=== PATIENT | female | born 1965 | race Caucasian/White ===

== ENCOUNTER 2019-12-16 07:22 | Outpatient (CLI) | payer OTHER, SELFPAY ==
--- NOTE | ~2019-12-16 | DEXA_ITS ---
Bone Density Report Name: Soni Alarcon Age: 54 Sex: Female Ethnicity: White Date of : 1965 Indication: osteopenia; hysterectomy;postmenopausal Referring Provider: MAURICIO, NOHEMI Study: Bone densitometry was performed. Exam Date: December 16, 2019 Accession number: [id number] Bone Density: Region BMD T-score Z-score Classification AP Spine (L1-L4) 0.863 -1.7 -0.7 Osteopenia Femoral Neck (Left) 0.809 -0.4 0.6 Normal Total Hip (Left) 0.959 0.1 0.8 Normal Total Hip Bilateral Avg 0.978 0.3 1.0 Normal Femoral Neck (Right) 0.829 -0.2 0.8 Normal Total Hip (Right) 0.996 0.4 1.1 Normal World Health Organization criteria for BMD impression classify patients as: Normal (T-score at or above -1.0), Osteopenia (T-score between -1.0 and -2.5), or Osteoporosis (T-score at or below -2.5). 10-year Fracture Risk(1): Major Osteoporotic Fracture 4.4% Hip Fracture 0.1% Reported Risk Factors: [place] (), Neck BMD=0.809, BMI=20.7 (1) FRAX(R) Version 3.08. Fracture probability calculated for an untreated patient. Fracture probability may be lower if the patient has received treatment. Previous Exams: Region Exam Age BMD T-score BMD Change BMD Change Date g/cm2 vs Baseline vs Previous AP Spine(L1-L4) 12/16/2019 54 0.863 -1.7 -0.092(-9.7%)* -0.020(-2.2%) 11/17/2017 52 0.882 -1.5 -0.073(-7.6%)* -0.073(-7.6%)* 10/24/2014 49 0.955 -0.8 Total Hip(Left) 12/16/2019 54 0.959 0.1 -0.026(-2.6%) 0.017(1.8%) 11/17/2017 52 0.942 0.0 -0.043(-4.4%)* -0.043(-4.4%)* 10/24/2014 49 0.986 0.4 Total Hip(Right) 12/16/2019 54 0.996 0.4 0.007(0.7%) 0.015(1.5%) 11/17/2017 52 0.981 0.3 -0.008(-0.8%) -0.008(-0.8%) 10/24/2014 49 0.989 0.4 *Denotes significance at 95% confidence level, LSC for AP Spine = 0.022 g/cm2, LSC for Total Hip = 0.027 g/cm2 Clinical Information Provided by Patient: Has used the following medications: Vitamin D, Calcium Has the following medical conditions: Hysterectomy Patient maximum height was 61 Menopause Age: 46 Does not regularly consume dairy products Drinks caffeinated beverages Onset of menses at age 14 Number of children 2 Impression: The patient has low bone mass, based on the Total Spine T-score. The patient has an estimated ten-year risk of hip fracture of 0.1% and an estimated ten-year risk of major fracture of 4.4%, based on the WHO FRAX algorithm. No
--- NOTE | ~2019-12-16 | MM_ITS ---
EXAMINATION: MM screening [facility] BI w eliazar HISTORY: Screening mammogram TECHNIQUE: Craniocaudal and mediolateral oblique 3-D tomosynthesis images were obtained and synthetic 2-D images were generated. CAD analysis was submitted and interpreted. COMPARISON: 12/07/2018, 11/08, 11/06/2016 bilateral digital screening mammogram examinations BREAST PARENCHYMAL COMPOSITION: The breasts are heterogeneously dense, which may obscure small masses . FINDINGS: Numerous bilateral benign calcifications. There is no evidence of suspicious mass, calcific ation, or architectural distortion to suggest malignancy in either breast. There has been no suspicio us interval change. IMPRESSION: 1. No mammographic evidence of malignancy. 2. Recommend routine screening mammography in one year. BI-RADS Category 2: Benign finding(s). Reviewed, dictated and finalized at location A.
== END 2019-12-16 07:23 | disposition home or self-care (01) ==
LOC: ANHIMG 07:27
PROVIDERS: Visit Provider Nurse Practitioner
DX: Z12.31 Encounter for screening mammogram for malignant neoplasm of breast (principal); Z78.0 Asymptomatic menopausal state; M85.88 Other specified disorders of bone density and structure, other site
CPT/HCPCS: 77063; 77067; 77080

== ENCOUNTER 2020-12-18 17:19 | Outpatient (CLI) | payer OTHER, SELFPAY ==
--- NOTE | ~2020-12-18 | MM_ITS ---
EXAMINATION: MM screening [facility] BI w eliazar HISTORY: Screening TECHNIQUE: Craniocaudal and mediolateral oblique 3-D tomosynthesis images were obtained and synthetic 2-D images were generated. CAD analysis was submitted and interpreted. COMPARISON: Comparison to multiple prior studies sequentially, with oldest reviewed study dated 10/2014. BREAST PARENCHYMAL COMPOSITION: The breasts are heterogeneously dense, which may obscure small masses . FINDINGS: There are benign-appearing bilateral breast calcifications. There is no evidence of suspici ous mass, calcification, or architectural distortion to suggest malignancy in either breast. There delgado s been no suspicious interval change. IMPRESSION: 1. No mammographic evidence of malignancy. 2. Recommend routine screening mammography in one year. BI-RADS Category 2: Benign finding(s). Reviewed, dictated and finalized at location A.
== END 2020-12-18 17:20 | disposition home or self-care (01) ==
LOC: ANHIMG 17:22
PROVIDERS: Visit Provider Nurse Practitioner
DX: Z12.31 Encounter for screening mammogram for malignant neoplasm of breast (principal)
CPT/HCPCS: 77063; 77067

== ENCOUNTER 2022-01-15 14:49 | Outpatient (CLI) | payer OTHER, SELFPAY ==
--- NOTE | ~2022-01-15 | MM_ITS ---
EXAMINATION: MM screening [facility] BI w eliazar HISTORY: Screening mammogram TECHNIQUE: Craniocaudal and mediolateral oblique 3-D tomosynthesis images were obtained and synthetic 2-D images were generated. CAD analysis was submitted and interpreted. COMPARISON: 12/18/2020, 12/16/2019, 12/07/2018 bilateral screening mammogram examinations BREAST PARENCHYMAL COMPOSITION: The breasts are heterogeneously dense, which may obscure small masses . FINDINGS: There are multiple scattered bilateral benign calcifications. There is no evidence of suspi cious mass, calcification, or architectural distortion to suggest malignancy in either breast. There has been no suspicious interval change. IMPRESSION: 1. No mammographic evidence of malignancy. 2. Recommend routine screening mammography in one year. BI-RADS Category 2: Benign finding(s). Reviewed, dictated and finalized at location A.
== END 2022-01-15 14:50 | disposition home or self-care (01) ==
LOC: ANHIMG 14:52
PROVIDERS: Visit Provider Nurse Practitioner
DX: Z12.31 Encounter for screening mammogram for malignant neoplasm of breast (principal)
CPT/HCPCS: 77063; 77067

== ENCOUNTER 2022-04-30 14:52 | Outpatient (CLI) | payer OTHER, SELFPAY ==
--- NOTE | ~2022-04-30 | DEXA_ITS ---
Bone Density Report Name: LUANN BROWN Age: 57 Sex: Female Ethnicity: White Date of : 1965 Indication: osteopenia; hysterectomy; postmenopausal Referring Provider: MAURICIO, NOHEMI Study: Bone densitometry was performed. Exam Date: April 30, 2022 Accession number: [id number] Bone Density: Region BMD T-score Z-score Classification AP Spine(L1-L4) 0.955 -0.8 0.3 Normal Femoral Neck (Left) 0.833 -0.1 1.0 Normal Total Hip (Left) 0.974 0.3 1.0 Normal Femoral Neck (Right) 0.855 0.1 1.2 Normal Total Hip (Right) 1.012 0.6 1.3 Normal Total Hip Mean 0.993 0.5 1.2 Normal World Health Organization criteria for BMD impression classify patients as: Normal (T-score at or above -1.0), Osteopenia (T-score between -1.0 and -2.5), or Osteoporosis (T-score at or below -2.5). 10-year Fracture Risk: FRAX not reported because: All T-scores for Spine Total, Hip Total, Femoral Neck at or above -1.0 Previous Exams: Region Exam Age BMD T-score BMD Change BMD Change Date g/cm2 vs Baseline vs Previous AP Spine (L1-L4) 04/30/2022 57 0.955 -0.8 0.000 (0.0%) 0.092 (10.7%)* 12/16/2019 54 0.863 -1.7 -0.092 (-9.7%) -0.020 (-2.2%) 11/17/2017 52 0.882 -1.5 -0.073 (-7.6%) -0.073 (-7.6%) 10/24/2014 49 0.955 -0.8 Total Hip(Left) 04/30/2022 57 0.974 0.3 -0.011 (-1.2%) 0.015 (1.5%) 12/16/2019 54 0.959 0.1 -0.026 (-2.6%) 0.017 (1.8%) 11/17/2017 52 0.942 0.0 -0.043 (-4.4%) -0.043 (-4.4%) 10/24/2014 49 0.986 0.4 Total Hip(Right) 04/30/2022 57 1.012 0.6 0.023 (2.3%) 0.016 (1.6%) 12/16/2019 54 0.996 0.4 0.007 (0.7%) 0.015 (1.5%) 11/17/2017 52 0.981 0.3 -0.008 (-0.8%) -0.008 (-0.8%) 10/24/2014 49 0.989 0.4 *Denotes significance at 95% confidence level, LSC for AP Spine = 0.022 g/cm2, LSC for Total Hip = 0.027 g/cm2 Clinical Information Provided by Patient: Has used the following medications: Fosamax (i.e. alendronate), Vitamin D, Calcium Has the following medical conditions: Hysterectomy Patient maximum height was 61 Menopause Age: 46 Drinks caffeinated beverages Onset of menses at age 14 Number of children 2 Impression: The patient has normal bone mass. No significant bone loss was observed. Discussion: BONE DENSITY IS ABOVE THE MINIMUM DESIRABLE LEVEL AT ALL SKELETAL SITES TESTED. This patient?s bone mineral density is above the minimum de
== END 2022-04-30 14:53 | disposition home or self-care (01) ==
PROVIDERS: Visit Provider Nurse Practitioner
DX: Z78.0 Asymptomatic menopausal state (principal)
CPT/HCPCS: 77080

== ENCOUNTER 2023-04-15 07:53 | Outpatient (CLI) | payer OTHER, SELFPAY ==
--- NOTE | ~2023-04-15 | MM_ITS ---
EXAMINATION: MM screening [facility] BI w eliazar HISTORY: Screening mammogram TECHNIQUE: Craniocaudal and mediolateral oblique 3-D tomosynthesis images were obtained and synthetic 2-D images were generated. CAD analysis was submitted and interpreted. COMPARISON: 01/15/2022, 12/18/2020, 12/16/2019 bilateral screening mammogram examinations BREAST PARENCHYMAL COMPOSITION: The breasts are heterogeneously dense, which may obscure small masses . FINDINGS: Scattered bilateral benign-appearing microcalcifications are again noted. There is no evide nce of suspicious mass, calcification, or architectural distortion to suggest malignancy in either br east. There has been no suspicious interval change. IMPRESSION: 1. Benign findings. No mammographic evidence of malignancy. 2. Recommend routine screening mammography in one year. BI-RADS Category 2: Benign finding(s). Reviewed, dictated and finalized at location A.
== END 2023-04-15 07:54 | disposition home or self-care (01) ==
LOC: ANHIMG 07:58
PROVIDERS: Visit Provider Nurse Practitioner
DX: Z12.31 Encounter for screening mammogram for malignant neoplasm of breast (principal)
CPT/HCPCS: 77063; 77067

== ENCOUNTER 2024-04-18 15:16 | Outpatient (CLI) | payer OTHER, SELFPAY ==
--- NOTE | ~2024-04-18 | MM_ITS ---
EXAMINATION: MM screening [facility] BI w eliazar HISTORY: Screening mammogram TECHNIQUE: Craniocaudal and mediolateral oblique 3-D tomosynthesis images were obtained and synthetic 2-D images were generated. CAD analysis was submitted and interpreted. COMPARISON: 04/15/2023, 01/15/2022, 12/18/2020, 12/16/2019 BREAST PARENCHYMAL COMPOSITION:Not Dense. There are scattered areas of fibroglandular density. FINDINGS: No suspicious mass, calcification, or architectural distortion are identified in either geoff ast to suggest malignancy. There has been no suspicious interval change. IMPRESSION: No mammographic evidence of malignancy. Recommend routine screening mammography in one year. BI-RADS Category 1: Negative Reviewed, dictated and finalized at location .
== END 2024-04-18 15:17 | disposition home or self-care (01) ==
LOC: ANHIMG 15:23
PROVIDERS: Visit Provider Nurse Practitioner
DX: Z12.31 Encounter for screening mammogram for malignant neoplasm of breast (principal)
CPT/HCPCS: 77063; 77067

== ENCOUNTER 2024-05-11 08:17 | Outpatient (CLI) | payer OTHER, SELFPAY ==
--- NOTE | ~2024-05-11 | DEXA_ITS ---
Bone Density Report Name: LUANN BROWN Age: 59 Sex: Female Ethnicity: White Date of : 1965 Indication: postmenopausal; screening for osteoporosis; hysterectomy; Referring Provider: MAURICIO, NOHEMI Study: Bone densitometry was performed. Exam Date: May 11, 2024 Accession number: [id number] Bone Density: Region BMD T-score Z-score Classification AP Spine(L1-L4) 0.937 -1.0 0.3 Normal Femoral Neck (Left) 0.826 -0.2 1.0 Normal Total Hip (Left) 1.016 0.6 1.4 Normal Femoral Neck (Right) 0.836 -0.1 1.1 Normal Total Hip (Right) 1.022 0.7 1.5 Normal Total Hip Mean 1.019 0.7 1.5 Normal World Health Organization criteria for BMD impression classify patients as: Normal (T-score at or above -1.0), Osteopenia (T-score between -1.0 and -2.5), or Osteoporosis (T-score at or below -2.5). 10-year Fracture Risk: FRAX not reported because: All T-scores for Spine Total, Hip Total, Femoral Neck at or above -1.0 Previous Exams: Region Exam Age BMD T-score BMD Change BMD Change Date g/cm2 vs Baseline vs Previous AP Spine (L1-L4) 05/11/2024 59 0.937 -1.0 -0.018 (-1.9%) -0.018 (-1.9%) 04/30/2022 57 0.955 -0.8 0.000 (0.0%) 0.092 (10.7%)* 12/16/2019 54 0.863 -1.7 -0.092 (-9.7%) -0.020 (-2.2%) 11/17/2017 52 0.882 -1.5 -0.073 (-7.6%) -0.073 (-7.6%) 10/24/2014 49 0.955 -0.8 Total Hip(Left) 05/11/2024 59 1.016 0.6 0.030 (3.1%)* 0.042 (4.3%)* 04/30/2022 57 0.974 0.3 -0.011 (-1.2%) 0.015 (1.5%) 12/16/2019 54 0.959 0.1 -0.026 (-2.6%) 0.017 (1.8%) 11/17/2017 52 0.942 0.0 -0.043 (-4.4%) -0.043 (-4.4%) 10/24/2014 49 0.986 0.4 Total Hip(Right) 05/11/2024 59 1.022 0.7 0.033 (3.4%)* 0.010 (1.0%) 04/30/2022 57 1.012 0.6 0.023 (2.3%) 0.016 (1.6%) 12/16/2019 54 0.996 0.4 0.007 (0.7%) 0.015 (1.5%) 11/17/2017 52 0.981 0.3 -0.008 (-0.8%) -0.008 (-0.8%) 10/24/2014 49 0.989 0.4 *Denotes significance at 95% confidence level, LSC for AP Spine = 0.022 g/cm2, LSC for Total Hip = 0.027 g/cm2 Clinical Information Provided by Patient: Has used the following medications: Vitamin D, Calcium Has the following medical conditions: Hysterectomy Patient maximum height was 61 Menopause Age: 46 Drinks caffeinated beverages Onset of menses at age 14 Number of children 2 Impression: The patient has normal bone mass. No significant bone loss was observed. Discussion: BONE DENSITY IS ABOVE THE MINIMUM DESIRABLE LEVEL AT ALL SKELETAL SITES TESTED. This patient?s bone mineral density is above the minimum desirable level (T-score -1.0 or better) at all sites measured. The patient should follow a healthful lifestyle (good nutrition with adequate calcium and vitamin D, and appropriate weight-bearing exercise). Follow-Up: Consider repeating this study in 5 years or sooner if there is some new clinical indication. Reported by: ANCELMO on 05/11/2024 8:51:00 AM. Reviewed, dictated and finalized at location [facility]
== END 2024-05-11 08:18 | disposition home or self-care (01) ==
LOC: ANHIMG 08:20
PROVIDERS: Visit Provider Nurse Practitioner
DX: Z78.0 Asymptomatic menopausal state (principal)
CPT/HCPCS: 77080

== ENCOUNTER 2025-05-31 09:06 | Outpatient (CLI) | payer OTHER, SELFPAY ==
--- NOTE | ~2025-05-31 | MM_ITS ---
EXAMINATION: MM screening [facility] BI w eliazar HISTORY: Screening. TECHNIQUE: Craniocaudal and mediolateral oblique 3-D tomosynthesis images were obtained and synthetic 2-D images were generated. CAD analysis was submitted and interpreted. COMPARISON: 2023, 2022, and 2021. BREAST PARENCHYMAL COMPOSITION: Dense: The breasts are heterogeneously dense FINDINGS: No suspicious masses are seen. There are no suspicious calcifications. No unexplained architectural distortion is seen. There are no skin or nipple abnormalities identified. There is no adenopathy seen on the images submitted. IMPRESSION: No mammographic evidence to suggest malignancy is seen. The patient may return to screening mammography as per ACR guidelines. BI-RADS 1 - Negative. Reviewed, dictated and finalized at location C. [employer]
== END 2025-05-31 09:07 | disposition home or self-care (01) ==
LOC: ANHFOHIMG 09:07
PROVIDERS: PCP Family Medicine; Visit Provider Nurse Practitioner
DX: Z12.31 Encounter for screening mammogram for malignant neoplasm of breast (principal)
CPT/HCPCS: 77063; 77067